=== PATIENT | male | born 1945 | race Caucasian/White ===

== ENCOUNTER → 2020-09-04 14:59 | Outpatient (CLI) | payer MEDICARE, OTHER, SELFPAY ==
[2020-09-04 16:16] LABS: COVID19 -Nasal RAPID Negative (Negative)
== END ==
PROVIDERS: PCP Family Medicine; Visit Provider Physician Assistant
DX: Z11.59 Encounter for screening for other viral diseases (principal)
CPT/HCPCS: 87635

== ENCOUNTER 2020-09-06 12:36 | Day surgery (SDC) | payer MEDICARE, OTHER, SELFPAY ==
--- NOTE | 2020-09-05 19:17 | PM.PREOP ---
Pre-operative Note COVID-19 COVID-19 status: Negative Interval Note History & Physical reviewed/Exam performed by Physician: Yes Changes to H&P: No H&P completed within 30 days and has changed as indicated here:: Transient chest pain while in the preop holding area with an EKG showing no changes. All symptoms resolved and he wished to proceed with surgery. He also had 2 episodes of diarrhea which she has had a intermittent problem with. He is COVID negative. 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 He was examined by Anesthesia and cleared to proceed.
--- NOTE | 2020-09-05 20:20 | PM.OP.1 ---
Operative Date/Time/Diagnoses Date of procedure: 09/06/20 Time of procedure: 13:15 Procedure & Clinicians Procedure: Preoperative diagnoses: 1. 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 4. Sleep apnea 5. Enlarged prostate 6. Cardiac Postoperative diagnoses: 1. Complex Cataract removed by phacoemulsification with placement of posterior chamber intraocular lens with Maluygin ring and capsular dye. Procedure: Phacoemulsification with posterior chamber intraocular lens implant Surgeon: Payton Conroy MD Complications: None Specimen: None Implant: [id number]+18.0 Blood loss: None Anesthesia: Retrobulbar with monitored standby Description of procedure: Patient presents with a complaint of decreased vision due to cataract which is affecting activities of daily living reading and near. 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 He is previously scheduled for surgery and canceled his symptoms have now increased knee to proceed. He understands the extra risk COVID-19 has tested negative virus The patient wants surgery to improve vision. Poorly dilated. The patient was taken to the operating room and given IV sedation. A retrobulbar block consisting of 6 cc of 2% xylocaine without epinephrine mixed half and half with 0.5% Marcaine with 1 cc of hyaluronidase added is placed between the medial and lateral 1/3 of the inferior orbital rim. The eye is manually massaged for 30 sec, prepped using Betadine solution, and draped in the usual sterile fashion. Temporal approach was made, a 1 mm side-port incision was made 90? from the proposed clear corneal incision position. Phenylephrine 1.5% mixed with 1% xylocaine 0.2 cc was placed into the anterior chamber. An air bubble was placed and Visudyne capsular dye is placed in the anterior chamber. The air was then irrigated out with BSS Viscoat followed by Healon was then placed. A 2.6 mm clear incision with a 2.6 mm blade was placed. A 7.0 mm Maluygin ring is inspected and placed into the anterior chamber. It is then sequentially hooked on each quadrant of the iris. It was noted there was synechiae in the superior nasal quadrant between the lens and the iris. These were easily broken open using the capsular ring. A 360 degree capsulorrhexis style capsulotomy was then performed with a cystitome needle on a Healon. Hydrodelineation and hydrodissection were performed. The phacoemulsification unit is introduced, and sculpting notice used to groove the central lens. It is then removed in chopping mode. Epi nucleus is removed with epinuclear mode and irrigation aspiration was used to remove the peripheral cortex. The posterior capsule is polished. The intraocular lens is selected, inspected, power confirmed, and placed in the posterior chamber. The wound was stromally hydrated and tested for leaks, there was none and it was left sutureless. Vigamox 0.1 cc was placed into the anterior chamber. Kenalog 0.2 cc was placed in the superior subconjunctival space. A drop of antibiotic and was placed and the eye was patched and shielded. The patient was stable and returned to the recovery room in excellent condition. Dictated by: Payton Conroy MD Copy to: [facility] Same procedure as scheduled: Yes
[2020-09-06] MEDS: PROPARACAINE 0.5% OPHTH SOL 2 DROPS EYE-OP (13:40)
[2020-09-06] MEDS: CATARACT EYE COMPOUND (10 DROPS/SYRINGE) 3 DROPS EYE-OP (13:42)
[2020-09-06 14:08] VITALS: BMI 35.4
--- NOTE | 2020-09-06 14:47 | SUR.PREOP ---
to the OR; Dr. Conroy and Fiorella informed of diarrhea. Had pt take his pants off in case he has an incident during the surgery. No further chest pressure, or other cardiac symptoms. Pt requested to go to the bathroom a 4th time 'to be sure'. States that he did 'push some out' (BM). L hearing aid given to his by the patient.
[2020-09-06] MEDS: ERYTHROMYCIN OPHTH 1 GM OINT 1 APPLIC EYE-LEFT (15:10)
[2020-09-06] MEDS: CHONDROIDTIN/SOD HYALURONATE 1.05 ML SYRINGE INTRAOCULA (15:10)
[2020-09-06] MEDS: MOXIFLOXACIN INJ 5 MG/ML VIAL EYE-OP (15:11)
[2020-09-06] MEDS: PHENYLEPHRINE/LIDOCAINE VIAL (OR) 0.2 ML EYE-OP (15:11)
[2020-09-06] MEDS: TRIAMCINOLONE 50 MG/5 ML VIAL INJ (15:11)
[2020-09-06] MEDS: HYALURONATE SODIUM 10 MG/ML SYRINGE INJ (15:11)
[2020-09-06] MEDS: BALANCED SALT IRRIG SOLN NO.2 500 ML, EPINEPHrine 1 MG IRR (15:12)
[2020-09-06] MEDS: TRYPAN BLUE 0.5 ML SYRINGE INJ (15:12)
[2020-09-06] MEDS: LIDOCAINE 2% 4 ML, BUPIVACAINE 0.5% (PF) 4 ML, HYALURONIDASE 150 UNIT INJ (15:13)
[2020-09-06 15:45] VITALS: BP 112/68; PULSE 51; RESP 18; TEMP 36.6; O2SAT 95
--- NOTE | 2020-09-06 16:15 | SUR.PHASEII ---
1605-Pt dcd in stable condition via wc by patricia Horton, no c/o
== END 2020-09-06 16:05 | disposition home or self-care (01) ==
LOC: OR 12:38
PROVIDERS: PCP Internal Medicine; Referring Provider Ophthalmology; Visit Provider Ophthalmology
PROC: (CPT 66982; principal; 2020-09-06 14:15)
DX: H25.812 Combined forms of age-related cataract, left eye (principal); H21.81 Floppy iris syndrome; G47.30 Sleep apnea, unspecified
CPT/HCPCS: 66982; 93005; J0171; J2704; J3301; J3470

== ENCOUNTER → 2020-09-18 14:13 | Outpatient (CLI) | payer MEDICARE, OTHER, SELFPAY ==
[2020-09-18 15:20] LABS: COVID19 -Nasal RAPID Negative (Negative)
== END ==
PROVIDERS: PCP Internal Medicine; Visit Provider Physician Assistant
DX: Z01.812 Encounter for preprocedural laboratory examination (principal); Z20.828 Contact with and (suspected) exposure to other viral communicable diseases
CPT/HCPCS: 87635; C9803

== ENCOUNTER 2020-09-20 09:21 | Day surgery (SDC) | payer MEDICARE, OTHER, SELFPAY ==
--- NOTE | 2020-09-19 18:22 | PM.PREOP ---
Pre-operative Note COVID-19 COVID-19 status: Negative Interval Note History & Physical reviewed/Exam performed by Physician: Yes Changes to H&P: No
--- NOTE | 2020-09-20 07:51 | PM.OP.1 ---
Operative Date/Time/Diagnoses Date of procedure: 09/20/20 Time of procedure: 10:45 Procedure & Clinicians Procedure: Preoperative diagnoses: 1. Right complex surgery with use of capsular dye and a Malyugin ring. 2. Mature or advanced nuclear sclerotic and cortical cataract with poor visibility of the anterior capsule increasing surgical risks of complications. 3. Floppy iris syndrome used due to the use of previous sympathomimetics. 4. Encephalopathy from previous carbon monoxide poisoning. 5. Cardiac disease with stents. 6. Sleep apnea with a CPAP machine. Postoperative diagnoses: 1. Complex surgery with use of capsular dye, and a Maluygin ring. 2. Placement of a posterior chamber intraocular lens implant. Surgeon: Payton Conroy MD Complications: none Specimen: None Implant: [id number] Blood loss: None Anesthesia: Retrobulbar with monitored standby. Description of procedure: Dictated by: Payton Conroy MD Post operative diagnoses: 1. Right cataract removed with use of capsular dye can use of Maluygin ring. 2. Placement of a posterior chamber intraocular lens. Procedure: Phacoemulsification with posterior chamber intraocular lens implant Surgeon: Payton Conroy MD Blood loss: None Anesthesia: Retrobulbar with monitored standby Description of procedure: Patient has presented with decreased vision distance and near due to cataract which is affecting activities of daily living. The patient wants surgery to improve vision. He has some decreased mentation from previous carbon monoxide poisoning but is cooperative. The patient was taken to the operating room and given IV sedation. A retrobulbar block consisting of 6 cc of 2% xylocaine without epinephrine mixed half and half with 0.5% Marcaine with 1 cc of hyaluronidase added is placed between the medial and lateral 1/3 of the inferior orbital rim. Lid akinesia is obtain with 1% xylocaine with epinephrine infiltrated along the lid margin. The eye is manually massaged for 30 sec, prepped using Betadine solution, and draped in the usual sterile fashion. Temporal approach was made, a 1 mm side-port incision was performed 90 degrees from the planned corneal wound. Phenylephrine 1.5% mixed with 1% xylocaine 0.2 cc was placed into the anterior chamber. An air bubble was placed and Visudyne dye was placed to improve visibility of the anterior capsule. The dye was irrigated out to reduce bubbles. Viscoat followed by Healon was then placed. A 2.6 mm clear incision with a 2.6 mm blade was placed. A 7.0 Maluygin ring is inspected and opened into the anterior chamber. The iris is then sequentially hooked in each quadrant cracking anterior synechiae. A 360 degree capsulorrhexis style capsulotomy was then performed with a cystitome needle on a Healon. Hydrodelineation and hydrodissection were performed. The patient was very difficult to keep in position during the surgery as he complained that he HD in various locations and that he did not fit well on the bed. He was adjusted as much as possible and extra viscoelastic was uses it to go in and out of the eye several times. The phacoemulsification unit is introduced, and sculpting used to groove the central lens. It is then removed in chopping mode. Epi nucleus is removed with epinuclear mode and irrigation aspiration was used to remove the peripheral cortex. The posterior capsule is polished. The intraocular lens is selected, inspected, power confirmed, and placed in the posterior chamber. The pupil was constricted with Miostat. The wound was stromally hydrated and tested for leaks, there was none and was left sutureless. Vigamox 0.1 cc was placed into the anterior chamber. Kenalog 0.2 cc was placed in the superior subconjunctival space. A drop of antibiotic and was placed and the eye was patched and shielded. The patient was stable and returned to the recovery room in excellent condition. No complications occurred but he did complaint is right shoulder was sore at the end of surgery which improved with manipulation. He can take Tylenol if needed. Dictated by: Payton Conroy MD Copy to: [facility] Same procedure as scheduled: Yes
[2020-09-20 10:17] VITALS: BP 137/70; PULSE 56; RESP 18; TEMP 36.5; O2SAT 95; BMI 35.4
[2020-09-20] MEDS: PROPARACAINE 0.5% OPHTH SOL 2 DROPS EYE-OP (10:25)
[2020-09-20] MEDS: CATARACT EYE COMPOUND (10 DROPS/SYRINGE) 3 DROPS EYE-OP (10:49)
[2020-09-20] MEDS: PHENYLEPHRINE/LIDOCAINE VIAL (OR) 0.2 ML EYE-OP (11:22)
[2020-09-20] MEDS: MOXIFLOXACIN INJ 5 MG/ML VIAL EYE-OP (11:23)
[2020-09-20] MEDS: LIDOCAINE 2% 4 ML, BUPIVACAINE 0.5% (PF) 4 ML, HYALURONIDASE 150 UNIT INJ (11:23)
[2020-09-20] MEDS: TRIAMCINOLONE 50 MG/5 ML VIAL INJ (11:24)
[2020-09-20] MEDS: CHONDROIDTIN/SOD HYALURONATE 1.05 ML SYRINGE INTRAOCULA ×2 (11:24→11:44)
[2020-09-20] MEDS: TRYPAN BLUE 0.5 ML SYRINGE INJ (11:25)
[2020-09-20] MEDS: HYALURONATE SODIUM 10 MG/ML SYRINGE INJ (11:25)
[2020-09-20] MEDS: BALANCED SALT IRRIG SOLN NO.2 500 ML, EPINEPHrine 1 MG IRR (11:25)
[2020-09-20] MEDS: ERYTHROMYCIN OPHTH 1 GM OINT 1 APPLIC EYE-RIGHT (11:26)
[2020-09-20 12:03] VITALS: BP 132/78; PULSE 62; RESP 16; TEMP 36.4; O2SAT 97
--- NOTE | 2020-09-20 12:29 | SUR.PHASEII ---
1222 patient continues to rotates and loosen up right arm, states that the pain level is decreasing and feels that he just needs to loosen it up more at home. Pt taken to the car, was able to put on his vest upon arrival to the car. Pt and pleasant and appreciative.
== END 2020-09-20 12:22 | disposition home or self-care (01) ==
LOC: OR 09:23
PROVIDERS: PCP Internal Medicine; Referring Provider Ophthalmology; Visit Provider Ophthalmology
PROC: (CPT 66982; principal; 2020-09-20 10:45)
DX: H25.811 Combined forms of age-related cataract, right eye (principal); H21.81 Floppy iris syndrome; G47.30 Sleep apnea, unspecified
CPT/HCPCS: 66982; J0171; J2250; J3301; J3470

== ENCOUNTER → 2021-03-13 14:40 | Outpatient (CLI) | payer MEDICARE, OTHER, SELFPAY ==
[2021-03-13 15:22] LABS: Hemoglobin A1C% w Est Avg Glu 6.5 % (4.0-6.0)
[2021-03-13 15:43] LABS: Magnesium 1.8 mg/dL (1.6-2.3)
[2021-03-13 15:51] LABS: NT-proBNP (BNP-Adult 18+) 115 pg/mL (<125)
== END ==
PROVIDERS: PCP Internal Medicine; Referring Provider Nurse Practitioner; Visit Provider Nurse Practitioner
DX: R06.02 Shortness of breath (principal); R73.09 Other abnormal glucose; I10 Essential (primary) hypertension; I25.10 Atherosclerotic heart disease of native coronary artery without angina pectoris; E78.5 Hyperlipidemia, unspecified; Z68.36 Body mass index [BMI] 36.0-36.9, adult
CPT/HCPCS: 36415; 83036; 83735; 83880

== ENCOUNTER → 2022-07-18 13:08 | Outpatient (CLI) | payer MEDICARE, OTHER, SELFPAY ==
--- NOTE | 2022-07-18 13:09 | DI.MRI.S_ITS ---
PROCEDURE: MR HEAD/BRAIN WO/W CON INDICATIONS: Dementia without behavioral disturbance TECHNIQUE: Noncontrast axial T1 spin echo, axial T2 fast spin echo, sagittal and axial FLAIR, coronal T2 fast spin echo, axial gradient echo, axial diffusion and ADC through the brain. After the administration of contrast, axial and coronal and sagittal 3D VIBE or T1 spin echo with fat saturation through the brain. COMPARISON: None. FINDINGS: Image quality: Excellent. CSF Spaces: Basal cisterns are patent. No extra-axial fluid collections. Ventricles are normal in size and shape. Brain: No intracranial masses or hemorrhage. Campos/white matter interface is normal. Brainstem appears normal. Diffusion-weighted images demonstrate no acute infarct. Normal intravascular flow voids are present. Mild generalized atrophy and multifocal white matter chronic ischemic change Skull and face: Calvarial marrow is normal in signal. Orbits appear normal. Bilateral intraocular lens replacements noted. Sinuses: Sinuses and mastoids appear clear. IMPRESSION: Generalized cerebral and cerebellar atrophy without asymmetric cerebral lobar, brain stem, or hippocampal predominance to suggest specific neurodegenerative disease. No evidence of acute infarct, hemorrhage or mass lesion. Approved by: Dar Cabrales M.D. on 07/18/2022 at 17:16
== END ==
PROVIDERS: PCP Internal Medicine; Referring Provider Psychiatry & Neurology Neurology; Visit Provider Psychiatry & Neurology Neurology
DX: F03.90 Unspecified dementia, unspecified severity, without behavioral disturbance, psychotic disturbance, mood disturbance, and anxiety (principal); G31.9 Degenerative disease of nervous system, unspecified
CPT/HCPCS: 70553; A9579

== ENCOUNTER → 2023-01-07 11:03 | Outpatient (CLI) | payer MEDICARE, OTHER, SELFPAY ==
[2023-01-07 12:24] LABS: Add Manual Diff / Slide Review NO; Basophils Absolute Auto 0 /uL (0-100); Basophils Percent Auto 0.3 % (0-2); Eosinophils Absolute Auto 400 /uL (0-450); Eosinophils Percent Auto 4.1 % (2-4); Hematocrit 46.6 % (41-53); Hemoglobin 15.5 g/dL (13.5-17.5); Lymphocytes Absolute Auto 1900 /uL (1100-4500); Lymphocytes Percent Auto 21.2 % (25-40); Mean Corpuscular HGB Conc 33.2 % (30-36); Mean Corpuscular Hemoglobin 29.9 PG (26-34); Monocytes Absolute Auto 1000 /uL (0-900); Monocytes Percent Auto 11.9 % (3-14); Neutrophils Absolute Auto 5500 /uL (1500-7000); Neutrophils Percent Auto 62.5 % (50-75); Platelet Count 126 X10^3/uL (150-400); Red Blood Cell Count 5.18 X10^6/uL (4.5-5.9); Red Cell Distribution Width 13.8 % (11.6-14.8); White Blood Cell Count 8.7 X10^3/uL (4.5-11.0)
[2023-01-07 12:45] LABS: Alanine Aminotransferase 33 IU/L (<50); Albumin Globulin Ratio 1.2 (1.0-2.8); Alkaline Phosphatase 70 U/L (38-126); Aspartate Aminotransferase 29 IU/L (17-59); BUN Creatinine Ratio 22.4 (6-22); Bilirubin Total 0.5 mg/dL (0.2-1.3); Blood Urea Nitrogen 32 mg/dL (9-20); Calcium 9.1 mg/dL (8.4-10.2); Carbon Dioxide 24 mmol/L (22-32); Chloride 110 mmol/L (98-107); Cholesterol 121 mg/dL (140-199); Estimated Glomerular Filt Rate 51 mL/min (>60); Globulin 3.3 g/dL (1.7-4.1); Glucose 99 mg/dL (80-110); HDL Cholesterol 46 mg/dL (40-60); HEMOLYSIS < 15 (0-50); LDL Cholesterol Calculated 56 mg/dL (<100); Potassium 4.5 mmol/L (3.4-5.1); Sodium 142 mmol/L (137-145); Total Protein 7.3 g/dL (6.3-8.2); Triglycerides 97 mg/dL (35-150)
== END ==
PROVIDERS: PCP Internal Medicine; Referring Provider Nurse Practitioner; Visit Provider Nurse Practitioner
DX: I48.0 Paroxysmal atrial fibrillation (principal); E78.5 Hyperlipidemia, unspecified
CPT/HCPCS: 36415; 80053; 80061; 85025

== ENCOUNTER → 2023-10-14 15:05 | Outpatient (CLI) | payer MEDICARE, OTHER, SELFPAY ==
[2023-10-14 17:49] LABS: Alanine Aminotransferase 36 IU/L (<50); Albumin 4.1 g/dL (3.5-5.0); Albumin Globulin Ratio 1.3 (1.0-2.8); Alkaline Phosphatase 69 U/L (38-126); Aspartate Aminotransferase 34 IU/L (17-59); BUN Creatinine Ratio 22.3 (6-22); Bilirubin Total 0.8 mg/dL (0.2-1.3); Blood Urea Nitrogen 27 mg/dL (9-20); Calcium 9.5 mg/dL (8.4-10.2); Carbon Dioxide 26 mmol/L (22-32); Chloride 104 mmol/L (98-107); Estimated Glomerular Filt Rate > 60 mL/min (>60); Globulin 3.2 g/dL (1.7-4.1); Glucose 81 mg/dL (80-110); HEMOLYSIS < 15 (0-50); Potassium 4.5 mmol/L (3.4-5.1); Sodium 139 mmol/L (137-145); Total Protein 7.3 g/dL (6.3-8.2)
[2023-10-14 18:27] LABS: Add Manual Diff / Slide Review NO; Basophils Absolute Auto 100 /uL (0-100); Basophils Percent Auto 0.7 % (0-2); Eosinophils Absolute Auto 300 /uL (0-450); Eosinophils Percent Auto 3.7 % (2-4); Hematocrit 44.4 % (41-53); Hemoglobin 14.9 g/dL (13.5-17.5); Lymphocytes Absolute Auto 3000 /uL (1100-4500); Mean Corpuscular HGB Conc 33.6 % (30-36); Mean Corpuscular Hemoglobin 30.8 PG (26-34); Mean Corpuscular Volume 91.6 fL (80-100); Monocytes Absolute Auto 800 /uL (0-900); Monocytes Percent Auto 9.5 % (3-14); Neutrophils Absolute Auto 4400 /uL (1500-7000); Neutrophils Percent Auto 51.1 % (50-75); Platelet Count 205 X10^3/uL (150-400); Red Blood Cell Count 4.84 X10^6/uL (4.5-5.9); Red Cell Distribution Width 13.8 % (11.6-14.8); White Blood Cell Count 8.5 X10^3/uL (4.5-11.0)
== END ==
PROVIDERS: PCP Internal Medicine; Referring Provider Psychiatry & Neurology Neurology; Visit Provider Psychiatry & Neurology Neurology
DX: Z51.81 Encounter for therapeutic drug level monitoring (principal)
CPT/HCPCS: 36415; 80053; 85025

== ENCOUNTER → 2025-02-16 12:00 | Outpatient (CLI) | payer MEDICARE, OTHER, SELFPAY ==
--- NOTE | 2025-02-16 | DI.RAD.S_ITS ---
PROCEDURE: XR KNEE LT 3V INDICATIONS: Bilateral knee pain TECHNIQUE: 3 views of the knee were acquired. COMPARISON: None. FINDINGS: Bones: No evidence of hardware complication status post total knee arthroplasty. No fractures or dislocations. No suspicious bony lesions. Soft tissues: No joint effusion. No suspicious soft tissue calcifications. IMPRESSION: No evidence of hardware complication, acute bony abnormality or significant effusion status post total knee arthroplasty. Dictated by: Benton Franz M.D. on 02/17/2025 at 3:24 Approved by: Benton Franz M.D. on 02/17/2025 at 3:25
--- NOTE | 2025-02-16 12:06 | DI.RAD.S_ITS ---
PROCEDURE: XR FOOT RT MIN 3V INDICATIONS: Right Foot Pain and Bruising on Toes TECHNIQUE: 3 views of the foot were acquired. COMPARISON: None. FINDINGS: Bones: No fractures or dislocations. No suspicious bony lesions. Plantar calcaneal enthesopathy Soft tissues: No tibiotalar joint effusion. Achilles tendon appears normal. IMPRESSION: No acute bony abnormality. Dictated by: Benton Frnaz M.D. on 02/17/2025 at 3:18 Approved by: Benton Franz M.D. on 02/17/2025 at 3:23
--- NOTE | 2025-02-16 12:06 | DI.RAD.S_ITS ---
PROCEDURE: XR KNEE RT 3V INDICATIONS: Bilateral Knee Pain TECHNIQUE: 3 views of the knee were acquired. COMPARISON: None. FINDINGS: Bones: No fractures or dislocations. Moderate medial and lateral tibiofemoral and moderate to severe patellofemoral compartment narrowing with associated osteophytosis. No suspicious bony lesions. Soft tissues: No joint effusion. No suspicious soft tissue calcifications. IMPRESSION: KL grade 2 tricompartmental osteoarthritis without evidence of acute bony abnormality or significant effusion. Dictated by: Benton Franz M.D. on 02/17/2025 at 3:23 Approved by: Benton Franz M.D. on 02/17/2025 at 3:24
== END ==
LOC: DI 12:05
PROVIDERS: PCP Family Medicine; Referring Provider Family Medicine; Visit Provider Family Medicine
DX: S90.31XA Contusion of right foot, initial encounter (principal); M17.11 Unilateral primary osteoarthritis, right knee; M79.671 Pain in right foot; X58.XXXA Exposure to other specified factors, initial encounter
CPT/HCPCS: 73562; 73630